=== PATIENT | female | born 1995 | race American Indian/Alaskan Native ===

== ENCOUNTER 2018-05-27 14:33 | Inpatient (IN) | payer OTHER ==
--- NOTE | 2018-05-27 16:01 | C.PDOC ---
History Of Present Illness 22-year-old female, presents to the emergency department with complaints of feeling sad. Pt states she is hearing voices that are telling her to hurt herself. Patient states she has never sought help because she is "good at hiding feelings." Patient went to [facility] this morning. She denies any plan. Time Seen by Provider: 05/27/18 15:12 Chief Complaint (Nursing): Psychiatric Evaluation History Per: Patient History/Exam Limitations: no limitations Past Medical History Reviewed: Historical Data, Nursing Documentation, Vital Signs Vital Signs: Last Vital Signs Temp 99.6 F 05/27/18 14:44 Pulse 91 H 05/27/18 14:44 Resp 20 05/27/18 14:44 BP 111/72 05/27/18 14:44 Pulse Ox 100 05/27/18 14:44 - Medical History PMH: Asthma, Bipolar Disorder Family History: States: No Known Family Hx - Social History Hx Alcohol Use: Yes Hx Substance Use: Yes - Immunization History Hx Tetanus Toxoid Vaccination: No Hx Influenza Vaccination: No Hx Pneumococcal Vaccination: No Review Of Systems Constitutional: Negative for: Fever, Chills Cardiovascular: Negative for: Chest Pain Gastrointestinal: Negative for: Nausea, Vomiting Psych: Positive for: Suicidal ideation Physical Exam - Physical Exam Appears: Non-toxic, No Acute Distress, Other (tearful) Skin: Warm, Dry, No Rash Head: Atraumatic, Normacephalic Eye(s): bilateral: Normal Inspection Nose: Normal Oral Mucosa: Moist Lips: Normal Appearing Neck: Normal ROM Chest: Symmetrical Cardiovascular: Rhythm Regular, No Murmur Respiratory: Normal Breath Sounds, No Accessory Muscle Use Extremity: Normal ROM, No Deformity Neurological/Psych: Oriented x3, Normal Speech ED Course And Treatment - Laboratory Results Result Diagrams: 05/27/18 16:18 05/27/18 15:53 Lab Interpretation: No Acute Changes O2 Sat by Pulse Oximetry: 100 Pulse Ox Interpretation: Normal (RA) Progress Note: Patient was seen by crisis. She is medically cleared for psychiatric admission. Disposition - Disposition Disposition: HOSPITALIZED Disposition Time: 18:47 Condition: STABLE - POA Present On Arrival: None - Clinical Impression Clinical Impression: Bipolar disorder - Scribe Statement The provider has reviewed the documentation as recorded by the Scribe (Sofiya Kerr) All medical record entries made by the Scribe were at my direction and personally dictated by me. I have reviewed the chart and agree that the record accurately reflects my personal performance of the history, physical exam, medical decision making, and the department course for this patient. I have also personally directed, reviewed, and agree with the discharge instructions and disposition.
[2018-05-27 16:13] LABS: HCG,QUALITATIVE URINE NEGATIVE (NEGATIVE); SQUAMOUS EPITHIAL 4 /hpf (0-5); URINE AMORPHOUS SEDIMENT MODERATE /ul (<OCC); URINE BACTERIA FEW (<OCC); URINE BILIRUBIN NEGATIVE (NEGATIVE); URINE BLOOD NEGATIVE (NEGATIVE); URINE CLARITY Turbid (Clear); URINE GLUCOSE (UA) NORMAL (Normal); URINE LEUKOCYTE ESTERASE NEG Leu/uL (Negative); URINE PROTEIN 1+ mg/dL (NEGATIVE)
[2018-05-27 16:14] LABS: URINE COLOR YELLOW (YELLOW)
[2018-05-27 16:18] LABS: ALB/GLOB RATIO 1.3 (1.0-2.1); ALBUMIN 5.4 g/dL (3.5-5.0); BLOOD UREA NITROGEN 8 mg/dL (7-17); CALCIUM 9.8 mg/dl (8.6-10.4); GFR NON-AFRICAN AMERICAN > 60
[2018-05-27 16:21] LABS: ALT/SGPT 32 U/L (9-52); AST/SGOT 43 U/L (14-36)
[2018-05-27 16:30] LABS: BASO # 0.1 K/uL (0.0-0.2); BASO % 0.7 % (0.0-2.0); EOS % 0.2 % (0.0-4.0); HEMOGLOBIN 14.2 g/dL (11.0-16.0); LYMPH # 1.7 K/uL (1.0-4.3); LYMPH % 21.8 % (20.0-40.0); MEAN CELL VOLUME 91.2 fL (81.0-99.0); MEAN CORPUSCULAR HEMOGLOBIN 31.4 pg (27.0-31.0); MEAN CORPUSCULAR HGB CONC 34.4 g/dL (33.0-37.0); MEAN PLATELET VOLUME 6.9 fL (7.2-11.7); MONO # 0.8 K/uL (0.0-0.8); MONO % 10.7 % (0.0-10.0); NEUT # 5.2 K/uL (1.8-7.0); NEUT % 66.6 % (50.0-75.0); NRBC % 0.1 % (0.0-2.0); RBC 4.53 Mil/uL (3.80-5.20); RED CELL DISTRIBUTION WIDTH 13.8 % (11.5-14.5); WHITE BLOOD COUNT 7.9 K/uL (4.8-10.8)
[2018-05-27 16:34] LABS: BARBITURATES, UR NEGATIVE (NEGATIVE); OPIATES, UR NEGATIVE (NEGATIVE); PHENCYCLIDINE, UR NEGATIVE (NEGATIVE)
[2018-05-27 16:37] LABS: BENZODIAZEPINES, UR POSITIVE (NEGATIVE)
--- NOTE | 2018-05-27 19:40 | PCM.BM ---
<Sylvia Magana - Last Filed: 05/27/18 19:37> Treatment Plan Problems - Problems identified on initial assessmt Auditory Hallucinations Date Initiated: 05/27/18 Time Initiated: 19:37 Assessment reference: NA Status: Active Substance Abuse Date Initiated: 05/27/18 Time Initiated: 19:38 Assessment reference: NA Status: Active Treatment assets and liabiliti Patient Assests: cooperative, educated, ADL independent, physically healthy, negotiates basic needs, cognitively intact Patient Liabilities: live alone (Lives with aunt), financial problems, substance abuse (Ecstasy, Percocet, Marijuana), medical problems (Asthma, bronchitis) - Milieu Protocol Maintain good personal hygiene: daily Encourage regular showers, daily Remind patient to perform daily oral care, daily Assist patient to perform ADL's (Self) Conduct patient checks and document Observation sheet: Q15 minutes (Safety) Maintain personal safety: every shift Educate patient to report safety concerns to staff, every shift Monitor environment for contraband/sharps Medication safety: Monitor for expected outcome, potential side effects: every shift, Assess barriers to learning: every shift, Assess readiness for medication education: every shift <Chet Alcala - Last Filed: 05/29/18 11:01> - Diagnosis (1) Bipolar disorder Status: Acute Interventions: 05/29/18 11:01 * Assess/adjust medications daily and /or as needed * See patient on an individual basis 7x/week to assess level of manic behaviors and stability * Discuss risks, benefits, side effects and alternatives of medications * <Teressa López - Last Filed: 05/29/18 15:13> Family Contact Family involvement: Patient does not wish Family/SO involvement Family contact: Patient declines to allow family contact at present - Goals for Treatment Patient goals for treatment: "I want to be referred to an outpatient program for treatment." Discharge/Continuing Care - Education Needs Education Needs: Patient Medication, Patient Diagnosis/Disease Process, Patient Coping Skills, Patient Placement options, Patient Community resources - Discharge Discharge Criteria: Normal sleep pattern, Ability to care for self, No longer exhibiting s/s of withdrawal, Reduction of target symptoms Discharge to:: Home, With Family - Treatment Team Participation Discussed with Family/SO: No Was Patient/Family/SO present at Treatment Team Meeting: Yes
[2018-05-28 06:46] VITALS: O2SAT 97
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
[2018-05-28] MEDS: Albuterol HFA 90 mcg/actuation (8 g) INH PRN (10:35)
--- NOTE | 2018-05-29 11:02 | PCM.PYCHPN ---
Psychiatric Progress Note - Psychiatric Progress Note Patient seen today, length of contact: 15 min Patient Chief Complaint: I was hearing voices to kill myself.' Problems Identified/Issues Discussed: Patient seen and evaluated, chart reviewed and discussed with the nurse. Patient reports irritability and agitation. She reports racing of thoughts, flight of ideas and anxiety. Patient still reports auditory and visual hallucinations. She remained isolated and withdrawn. However she is taking medication and denied any side effects. Supportive therapy and psychoeducation were given Medication Change: Yes Medical Record Reviewed: Yes Mental Status Examination - Cognitive Function Orientation: Person, Place, Situation, Time Memory: Intact Attention: WNL Concentration: Poor Association: WNL Fund of Knowledge: Poor - Mood Mood: Depressed, Anxious - Affect Affect: Broad - Speech Speech: Loud - Formal Thought Process Formal Thought Process: Hallucinations, Delusions, Paranoia, Loosening of associations - Suicidal Ideation Suicidal Ideation: No - Homicidal Ideation Homicidal Ideation: No Goal/Treatment Plan - Goal/Treatment Plan Need for Continued Stay: Discharge may exacerbated symptoms, Severe functional impairment Progress Toward Problem(s) and Goals/Treatment Plan: Bipolar disorder mixed severe with psychotic features R/O Schizoaffective disorder bipolar type Alcohol use disorder mild Cannabis use disorder mild -CBT -Psychotherapy -Supportive therapy and milieu therapy -Abilify 5 mg PO QHS -Gabapentin 300 mg PO TID -Trazodone 50 mg PO QHS -Klonopin 0.5 mg PO BID -Lamictal 25 mg PO BID
--- NOTE | 2018-05-30 12:28 | PCM.PYCHPN ---
Psychiatric Progress Note - Psychiatric Progress Note Patient seen today, length of contact: 15 min Patient Chief Complaint: I m feeling little better.' Problems Identified/Issues Discussed: Patient seen and evaluated, chart reviewed and discussed with the nurse. Patient reports irritability and agitation. She reports racing of thoughts, flight of ideas and anxiety. Patient still reports auditory and visual hallucinations. She remained isolated and withdrawn. However she is taking medication and denied any side effects. Supportive therapy and psychoeducation were given Medication Change: Yes Medical Record Reviewed: Yes Mental Status Examination - Cognitive Function Orientation: Person, Place, Situation, Time Memory: Intact Attention: WNL Concentration: Poor Association: WNL Fund of Knowledge: Poor - Mood Mood: Depressed, Anxious - Affect Affect: Broad - Speech Speech: Loud - Formal Thought Process Formal Thought Process: Hallucinations, Delusions, Paranoia, Loosening of associations - Suicidal Ideation Suicidal Ideation: No - Homicidal Ideation Homicidal Ideation: No Goal/Treatment Plan - Goal/Treatment Plan Need for Continued Stay: Discharge may exacerbated symptoms, Severe functional impairment Progress Toward Problem(s) and Goals/Treatment Plan: Bipolar disorder mixed severe with psychotic features R/O Schizoaffective disorder bipolar type Alcohol use disorder mild Cannabis use disorder mild -CBT -Psychotherapy -Supportive therapy and milieu therapy -Abilify 20 mg PO QHS -Gabapentin 300 mg PO TID -Trazodone 50 mg PO QHS -Klonopin 0.5 mg PO BID -Lamictal 50 mg PO BID
[2018-05-30] MEDS: Albuterol HFA 90 mcg/actuation (8 g) INH PRN (13:41)
[2018-05-31] MEDS: Albuterol HFA 90 mcg/actuation (8 g) INH PRN (05:49)
[2018-05-31] MEDS ORDERED: Pneumococcal 23-Valent Vaccine IM ONE (10:00)
[2018-05-31] MEDS ORDERED: Influenza Vaccine 60 MCG/0.5 ML SYR (3 yr & up) IM ONE (10:00)
[2018-06-01 06:29] VITALS: TEMP 97.6
--- NOTE | 2018-06-01 21:08 | PCM.PYCHPN ---
Psychiatric Progress Note - Psychiatric Progress Note Patient seen today, length of contact: 15 min Patient Chief Complaint: I m feeling little better.' Problems Identified/Issues Discussed: Patient seen and evaluated, chart reviewed and discussed with the nurse. Patient reports some improvement in her irritability, agitation, and racing thoughts. Patient still reports auditory and visual hallucinations but less in frequency. She remained isolated and withdrawn. However she is taking medication and denied any side effects. Supportive therapy and psychoeducation were given Medication Change: Yes Medical Record Reviewed: Yes Mental Status Examination - Cognitive Function Orientation: Person, Place, Situation, Time Memory: Intact Attention: WNL Concentration: Poor Association: WNL Fund of Knowledge: Poor - Mood Mood: Depressed, Anxious - Affect Affect: Broad - Speech Speech: Loud - Formal Thought Process Formal Thought Process: Hallucinations, Delusions, Paranoia, Loosening of associations - Suicidal Ideation Suicidal Ideation: No - Homicidal Ideation Homicidal Ideation: No Goal/Treatment Plan - Goal/Treatment Plan Need for Continued Stay: Discharge may exacerbated symptoms, Severe functional impairment Progress Toward Problem(s) and Goals/Treatment Plan: Bipolar disorder mixed severe with psychotic features R/O Schizoaffective disorder bipolar type Alcohol use disorder mild Cannabis use disorder mild -CBT -Psychotherapy -Supportive therapy and milieu therapy -Abilify 20 mg PO QHS -Gabapentin 300 mg PO TID -Trazodone 50 mg PO QHS -Klonopin 0.5 mg PO BID -Lamictal 50 mg PO BID
--- NOTE | 2018-06-01 21:27 | PCM.PYCHPN ---
Psychiatric Progress Note - Psychiatric Progress Note Patient seen today, length of contact: 15 min Patient Chief Complaint: I am feeling much better. Can I go home today. Problems Identified/Issues Discussed: Patient seen, chart reviewed, case discussed with the staff. Issues related to illness and treatment were discussed with the patient and staff. Reported compliant with treatment with no adverse affects. Tolerating treatment very well. Patient reported feeling better with the treatment.Requesting for discharge. Patient was not stable as patient appeared angry and irritable. Found punching on the spears. Angry and partially cooperative. Awake, alert and oriented 3. No psychomotor activity, good eye contact, memory intact. Aftercare discussed with the patient. Denied any delusions, auditory or visual hallucinations, suicidal ideations or homicidal ideations at the time of evaluation. Medical Problems: Asthma Bronchitis Diagnostic Results: Reviewed DSM 5 Symptoms Update: Some improvement with treatment. Medication Change: No Medical Record Reviewed: Yes Mental Status Examination - Cognitive Function Orientation: Person, Place, Situation, Time Memory: Intact Attention: WNL Concentration: WNL Association: WNL Fund of Knowledge: [facility] Decription of patient's judgement and insights: Poor - Mood Mood: Other (Angry) - Affect Affect: Other (Appropriate) - Speech Speech: Loud - Formal Thought Process Formal Thought Process: No Impairment Psychotic Thoughts and Behaviors: None - Suicidal Ideation Suicidal Ideation: No - Homicidal Ideation Homicidal Ideation: No Goal/Treatment Plan - Goal/Treatment Plan Need for Continued Stay: Remain at risks for inpatient hospitalization, Discharge may exacerbated symptoms, Severe functional impairment Progress Toward Problem(s) and Goals/Treatment Plan: Patient education. Supportive therapy. Continue treatment as before. Patient will go to [facility] for follow-up care after discharge from the hospital. Estimated Date of D/C: 06/02/18 - Smoking Cessation Smoking Cessation Initiated: No
[2018-06-02 06:36] VITALS: BP 110/74; PULSE 80; RESP 20
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
== END 2018-06-02 11:09 | disposition home or self-care (01) | DRG 885 ==
LOC: C.ER 14:33 → C.5E 18:48
PROVIDERS: ADMIT Psychiatry & Neurology Psychiatry; ATTEND Psychiatry & Neurology Psychiatry
PROC: GZHZZZZ Group Psychotherapy (ICD-10-PCS; principal; 2018-05-27)
PROC: GZ58ZZZ Individual Psychotherapy, Cognitive-Behavioral (ICD-10-PCS; 2018-05-27)
PROC: GZ56ZZZ Individual Psychotherapy, Supportive (ICD-10-PCS; 2018-05-27)
DX: F31.64 Bipolar disorder, current episode mixed, severe, with psychotic features (principal); R45.851 Suicidal ideations; F10.10 Alcohol abuse, uncomplicated; F12.90 Cannabis use, unspecified, uncomplicated; F41.9 Anxiety disorder, unspecified; J45.909 Unspecified asthma, uncomplicated; Z91.5 Personal history of self-harm; Z81.8 Family history of other mental and behavioral disorders; Y90.0 Blood alcohol level of less than 20 mg/100 ml

== ENCOUNTER 2018-10-07 06:46 | Inpatient (IN) | payer SELFPAY ==
[2018-10-07 07:40] LABS: BASO % 0.6 % (0.0-2.0); EOS # 0.1 K/uL (0.0-0.7); EOS % 2.4 % (0.0-4.0); HEMOGLOBIN 14.9 g/dL (11.0-16.0); LYMPH % 48.3 % (20.0-40.0); MEAN CELL VOLUME 92.6 fL (81.0-99.0); MEAN CORPUSCULAR HGB CONC 33.5 g/dL (33.0-37.0); MEAN PLATELET VOLUME 7.2 fL (7.2-11.7); MONO # 0.7 K/uL (0.0-0.8); MONO % 16.2 % (0.0-10.0); NEUT # 1.3 K/uL (1.8-7.0); NEUT % 32.5 % (50.0-75.0); NRBC % 0.1 % (0.0-2.0); RBC 4.82 Mil/uL (3.80-5.20); RED CELL DISTRIBUTION WIDTH 14.3 % (11.5-14.5); WHITE BLOOD COUNT 4.1 K/uL (4.8-10.8)
[2018-10-07 07:41] LABS: HCG,QUALITATIVE URINE NEGATIVE (NEGATIVE)
[2018-10-07 07:49] LABS: SQUAMOUS EPITHIAL 18 /hpf (0-5); URINE BACTERIA RARE (<OCC); URINE BILIRUBIN NEGATIVE (NEGATIVE); URINE BLOOD NEGATIVE (NEGATIVE); URINE CLARITY Hazy (Clear); URINE COLOR Yellow (YELLOW); URINE GLUCOSE (UA) NORMAL (Normal); URINE LEUKOCYTE ESTERASE NEG Leu/uL (Negative); URINE PROTEIN NEGATIVE (NEGATIVE)
--- NOTE | 2018-10-07 07:51 | C.PDOC ---
History Of Present Illness 23 y/o female,w/PMhx of bipolar disorder, presents to the ER complaining of feeling depressed since the morning. Patient states that she has suicidal ideation. She notes that she was searching up ways to hang herself. Patient denies having homicidal ideation, fever, chills, CP, SOB, nausea, and vomiting. Time Seen by Provider: 10/07/18 07:05 Chief Complaint (Nursing): Psychiatric Evaluation History Per: Patient History/Exam Limitations: no limitations Onset/Duration Of Symptoms: Hrs Current Symptoms Are (Timing): Still Present Severity: Moderate Past Medical History Reviewed: Historical Data, Nursing Documentation, Vital Signs Vital Signs: Last Vital Signs Temp 97.9 F 10/07/18 06:53 Pulse 88 10/07/18 06:53 Resp 20 10/07/18 06:53 BP 110/79 10/07/18 06:53 Pulse Ox 98 10/07/18 06:53 - Medical History PMH: Anxiety, Asthma, Bipolar Disorder, Bronchitis, Depression Denies: Diabetes, Hepatitis, HIV, HTN, Seizures, Sexually Transmitted Disease Surgical History: No Surg Hx - [facility] Procedures GROUP PSYCHOTHERAPY (05/27/18) INDIVIDUAL PSYCHOTHERAPY, COGNITIVE-BEHAVIORAL (05/27/18) INDIVIDUAL PSYCHOTHERAPY, SUPPORTIVE (05/27/18) Family History: States: No Known Family Hx - Social History Hx Alcohol Use: Yes (Daily) Hx Substance Use: Yes - Immunization History Hx Tetanus Toxoid Vaccination: No Hx Influenza Vaccination: No Hx Pneumococcal Vaccination: No Review Of Systems Except As Marked, All Systems Reviewed And Found Negative. Constitutional: Negative for: Fever, Chills Cardiovascular: Negative for: Chest Pain Respiratory: Negative for: Shortness of Breath Gastrointestinal: Negative for: Nausea, Vomiting Psych: Positive for: Depression, Suicidal ideation Physical Exam - Physical Exam Appears: Non-toxic, No Acute Distress, Other (calm,cooperative) Skin: Normal Color, Warm, Dry Head: Atraumatic, Normacephalic Eye(s): bilateral: Normal Inspection Nose: Normal Oral Mucosa: Moist Neck: Supple Chest: Symmetrical Cardiovascular: Rhythm Regular Respiratory: Normal Breath Sounds, No Rales, No Rhonchi, No Wheezing Gastrointestinal/Abdominal: Normal Exam, Soft, No Tenderness, No Guarding, No Rebound Neurological/Psych: Oriented x3, Normal Speech ED Course And Treatment - Laboratory Results Result Diagrams: 10/07/18 07:37 10/07/18 07:37 Lab Results: Urine HCG, Qual Negative (NEGATIVE) 10/07/18 07:18 Urine HCG, Qual Negative (NEGATIVE) 10/07/18 07:18 Lab Interpretation: Normal Urine POC: Negative O2 Sat by Pulse Oximetry: 98 (RA) Pulse Ox Interpretation: Normal Progress Note: Case discussed with police worker who evaluated patient in ED and request admission to Psych Reassessment Condition: Unchanged - Physician Consult Information Physician Contacted: Chet Alcala Outcome Of Conversation: admit Medical Decision Making Medical Decision Making: Plan: --Labs --UA --HCG, Qual. Disposition Discussed With Dr.: Chet Alcala Doctor Will See Patient In The: Hospital - Disposition Disposition: HOSPITALIZED Disposition Time: 11:30 Condition: STABLE - POA Present On Arrival: None - Clinical Impression Clinical Impression: Bipolar disorder - PA / [employer]OF[employer]OSTHET[employer] DENTIST / Resident Statement MD/DO has reviewed & agrees with the documentation as recorded. - Scribe Statement The provider has reviewed the documentation as recorded by the Lexis Moser Provider Attestation All medical record entries made by the Alissaibe were at my direction and personall y dictated by me. I have reviewed the chart and agree that the record accurately reflects my personal performance of the history, physical exam, medical decision making, and the department course for this patient. I have also personally directed, reviewed, and agree with the discharge instructions and disposition. Decision To Admit - Pt Status Changed To: Hospital Disposition Of: Inpatient - Admit Certification Admit to Inpatient:: After my assessment, the patient will require h ospitalization for at least two midnights. This is because of the severity of symptoms shown, intensity of services needed, and/or the medical risk in this patient being treated as an outpatient. - InPatient: Physician Admission Certification: I certify that this patient requires 2 or more midnights of care for the following reason:: Bipolar disorder - . Bed Request Type: Psychiatry Admitting Physician: Chet Alcala Patient Diagnosis: Bipolar disorder
[2018-10-07 08:04] LABS: BARBITURATES, UR NEGATIVE (NEGATIVE); BENZODIAZEPINES, UR NEGATIVE (NEGATIVE); OPIATES, UR NEGATIVE (NEGATIVE); PHENCYCLIDINE, UR NEGATIVE (NEGATIVE)
[2018-10-07 08:05] LABS: ALB/GLOB RATIO 1.3 (1.0-2.1); ALBUMIN 4.6 g/dL (3.5-5.0); ALT/SGPT 9 U/L (9-52); AST/SGOT 28 U/L (14-36); BLOOD UREA NITROGEN 12 mg/dL (7-17); CALCIUM 8.7 mg/dl (8.6-10.4); GFR NON-AFRICAN AMERICAN > 60
--- NOTE | 2018-10-07 09:42 | PCM.PSYCH ---
Initial Psychiatric Evaluation - Initial Psychiatric Evaluation Type of Admission: Voluntary Legal Status: Capacity Chief Complaint (in patient's own words): I was feeling depressed and suicidal.' History of Present Illness and Precipitating Events: Pt is a 23 year old female, who came to the ED following a suicide attempt this morning in which pt wrapped a sheet around her neck and tied it on the banister. Patient reports a long history of mood disorder. She reports history of one inpatient psychiatric hospitalization last year. She reports that soon after discharge from the hospital she stopped taking her medications and did not follow with a psychiatrist. She reported that she is feeling increasingly irritable and depressed since few weeks. Yesterday she became increasingly depressed and tried to kill herself by wrapping a sheet around her neck on 2 years ago. Pt states she was going to jump off of the side of the building to hang herself, but she thought of her niece who has the same birthday as her, and stopped herself. She states when she interrupted her suicide attempt, she immediately left her Aunt Roselyn a note letting her know that she was going to the hospital, and then called herself a Lyft. Patient reports that she has multiple suicide attempts in the past. Pt states that she has a history of cutting and burning since age 14, last episode "a few weeks ago" when pt cut her thigh and burned her forearm. Pt reports using alcohol and marijuana daily, last use yesterday. Pt reports drinking "some wine and a fifth" of liquor daily for "a while," and unspecified amount of marijuana daily. Pt presents as unkempt and disheveled. She reports irritability, agitation and at times difficult talks. She reports depressed mood and affect shortness of hopelessness and helplessness. She denies any auditory or visual hallucinations or any paranoia. Past medical history None reported Past Psychiatric History - Past Psychiatric History Previous Treatment History: Inpatient Pertinent Medical Hx (Current Medical&Sleep Prob, Allergies): Allergies Allergy/AdvReac Type Severity Reaction Status Date / Time No Known Allergies Allergy Verified 05/27/18 14:45 Famotidine [Pepcid] 20 mg PO HS #20 tab 07/17/15 Spacer, Inhalation [Aerochamber] 1 inh IH QID #1 dev 07/17/15 ARIPiprazole [Abilify] 20 mg PO HS #30 tab 06/02/18 Benztropine [Cogentin] 0.5 mg PO BID #60 tab 06/02/18 Gabapentin [Neurontin] 300 mg PO TID #90 cap 06/02/18 clonazePAM [Klonopin] 0.5 mg PO BID #30 tab 06/02/18 lamoTRIgine [Lamictal] 50 mg PO BID #60 tab 06/02/18 traZODone [Desyrel] 50 mg PO HS PRN #30 tab 06/02/18 Review of Systems - Review of Systems All systems: reviewed and no additional remarkable complaints except - Psychiatric Psychiatric: Anxiety, Irritability, Mood Swings, Suicidal Ideation Mental Status Examination - Personal Presentation Personal Presentation: Looks stated age - Affect Affect: Broad - Motor Activity Motor Activity: Psychomotor Agitation - Reliability in Providing Information Reliability in Providing Information: Poor, due to altered mood - Speech Speech: Organized - Mood Mood: Anxious - Formal Thought Process Formal Thought Process: Flight of ideas - Obsessions/Compulsions Obsessions: No Compulsions: No - Cognitive Functions Orientation: Person, Place, Situation, Time Sensorium: Alert Attention/Concentration: Attentive Abstract Thinking: [place] Estimate of Intelligence: Below average Judgement: Imparied, as evidence by: Poor judgement, Imparied, as evidence by: Lack of insight into illness - Risk Risk: Suicidal, Diminished functioning - Limitations Limitations: Living alone DSM 5 DX - DSM 5 DSM 5 Diagnosis: Bipolar disorder mixed severe with psychotic features Alcohol use disorder severe Cannabis use disorder severe - Recommended/Plan of Treatment Treatment Recommendations and Plan of Treatment: Bipolar disorder mixed severe with psychotic features Alcohol use disorder severe Cannabis use disorder severe CBT Psychoeducation Group therapy and supportive therapy Abilify for mood Hydroxyzine for anxiety Trazodone for insomnia Topamax for mood Risks and benefits of the medications were discussed with the patient Patient agreed to take the medications - Smoking Cessation Smoking Cessation Initiated: No
--- NOTE | 2018-10-07 12:03 | PCM.BM ---
<Velia Stallworth - Last Filed: 10/07/18 12:00> Treatment Plan Problems - Problems identified on initial assessmt Problem 1 Date Initiated: 10/07/18 Time Initiated: 12:01 Assessment reference: NA Status: Active Treatment assets and liabiliti Patient Assests: cooperative, educated, ADL independent, physically healthy, negotiates basic needs, cognitively intact Patient Liabilities: relationship conflicts, substance abuse - Milieu Protocol Maintain good personal hygiene: daily Encourage regular showers Conduct patient checks and document Observation sheet: Q15 minutes Maintain personal safety: every shift Educate patient to report safety concerns to staff, every shift Monitor environment for contraband/sharps Medication safety: Monitor for expected outcome, potential side effects: every shift, Assess barriers to learning: every shift, Assess readiness for medication education: every shift <Teressa López - Last Filed: 10/07/18 15:01> Family Contact Family involvement: Patient does not wish Family/SO involvement Family contact: Patient declines to allow family contact at present - Goals for Treatment Patient goals for treatment: "I want to be referred to an outpatient program." Discharge/Continuing Care - Education Needs Education Needs: Patient Medication, Patient Diagnosis/Disease Process, Patient Coping Skills, Patient Placement options, Patient Community resources - Discharge Discharge Criteria: Free of Suicidal thoughts, Normal sleep pattern, Ability to care for self, No longer exhibiting s/s of withdrawal, Reduction of target symptoms Discharge to:: Home - Treatment Team Participation Discussed with Family/SO: No Was Patient/Family/SO present at Treatment Team Meeting: Yes <Chet Alcala - Last Filed: 10/09/18 11:14> - Diagnosis (1) Bipolar disorder Status: Acute Interventions: 10/09/18 11:13 * Assess/adjust medications daily and /or as needed * See patient on an individual basis 7x/week to assess level of manic behaviors and stability * Discuss risks, benefits, side effects and alternatives of medications * (2) Cocaine use disorder, severe, dependence Status: Acute Interventions: 10/09/18 11:13 * Assess 7x/week regarding severity of withdrawal * Educate regarding risks, benefits, side effects and alternatives of medications * Use Motivational Interviewing for abstinence * Use CBT for relapse prevention * Medication management for withdrawal symptoms * Encourage medication assisted treatment *
--- NOTE | 2018-10-08 22:12 | PCM.PYCHPN ---
Psychiatric Progress Note - Psychiatric Progress Note Patient seen today, length of contact: 16 min Patient Chief Complaint: I m feeling depressed.' Problems Identified/Issues Discussed: Patient was seen and evaluated with staff. Patient's reports irritability, agitation and at times feeling of hopelessness and helplessness. By staff patient remained irritable and labile. She started taking medication without any side effects. She needs to stay longer for the stabilization of the symptoms Supportive therapy was given Medication Change: Yes Medical Record Reviewed: Yes Mental Status Examination - Cognitive Function Orientation: Person, Place, Situation, Time Memory: Intact Attention: WNL Concentration: Poor Association: WNL Fund of Knowledge: Poor - Mood Mood: Anxious - Affect Affect: Broad - Speech Speech: Pressured - Formal Thought Process Formal Thought Process: Flight of ideas - Suicidal Ideation Suicidal Ideation: No - Homicidal Ideation Homicidal Ideation: No Goal/Treatment Plan - Goal/Treatment Plan Need for Continued Stay: Remain at risks for inpatient hospitalization Progress Toward Problem(s) and Goals/Treatment Plan: Bipolar disorder mixed severe with psychotic features Alcohol use disorder severe Cannabis use disorder severe CBT Psychoeducation Group therapy and supportive therapy Abilify for mood Hydroxyzine for anxiety Trazodone for insomnia Topamax for mood Risks and benefits of the medications were discussed with the patient Patient agreed to take the medications - Smoking Cessation Smoking Cessation Initiated: No
[2018-10-09 05:50] VITALS: RESP 20
[2018-10-09] MEDS ORDERED: DiphenhydrAMINE 50 mg/ml Inj IM PRN ×2 (11:39→12:00)
[2018-10-11 06:36] VITALS: BP 94/66; PULSE 105; TEMP 98.1; O2SAT 99
--- NOTE | 2018-10-11 09:32 | PCM.PYCHDC ---
Mental Status Examination - Mental Status Examination Orientation: Person, Place, Situation, Time Memory: Intact Mood: Neutral Affect: Constricted Speech: Soft Attention: WNL Concentration: WNL Association: WNL Fund of Knowledge: WNL Formal Thought Process: No Impairment Description of patient's judgement and insight: good, fair Psychotic Thoughts and Behaviors: denies any AVH Suicidal Ideation: No Current Homicidal Ideation?: No Discharge Summary - Discharge Note Reason for Hospitalization: Pt is a 23 year old female, who came to the ED following a suicide attempt this morning in which pt wrapped a sheet around her neck and tied it on the banister. Patient reports a long history of mood disorder. She reports history of one inpatient psychiatric hospitalization last year. She reports that soon after discharge from the hospital she stopped taking her medications and did not follow with a psychiatrist. She reported that she is feeling increasingly irritable and depressed since few weeks. Yesterday she became increasingly depressed and tried to kill herself by wrapping a sheet around her neck on 2 years ago. Pt states she was going to jump off of the side of the building to hang herself, but she thought of her niece who has the same birthday as her, and stopped herself. She states when she interrupted her suicide attempt, she immediately left her Aunt Roselyn a note letting her know that she was going to the hospital, and then called herself a Lyft. Patient reports that she has multiple suicide attempts in the past. Pt states that she has a history of cutting and burning since age 14, last episode "a few weeks ago" when pt cut her thigh and burned her forearm. Pt reports using alc ohol and marijuana daily, last use yesterday. Pt reports drinking "some wine and a fifth" of liquor daily for "a while," and unspecified amount of marijuana daily. Pt presents as unkempt and disheveled. She reports irritability, agitation and at times difficult talks. She reports depressed mood and affect shortness of hopelessness and helplessness. She denies any auditory or visual hallucinations or any paranoia. Consultations:: List each consultation separately and include: 1. Reason for request. 2. Findings. 3. Follow-up Summary of Hospital Course include:: 1. Description of specific treatment plan utilized for patients during their course of treatmen. 2. Summarize the time- course for resolution of acute symptoms and/or regressed behaviors. 3. Describe issues identified and worked on during hospitalization. 4. Describe medication utilized. 5. Describe medical problems identified and treated. 6. Reassessment of suicide risk Summary of Hospital Course: Pt is a 23 year old female, who came to the ED following a suicide attempt this morning in which pt wrapped a sheet around her neck and tied it on the banister. Patient reports a long history of mood disorder. She reports history of one inpatient psychiatric hospitalization last year. She reports that soon after discharge from the hospital she stopped taking her medications and did not follow with a psychiatrist. She reported that she is feeling increasingly irritable and depressed since few weeks. Yesterday she became increasingly depressed and tried to kill herself by wrapping a sheet around her neck on 2 years ago. Pt states she was going to jump off of the side of the building to hang herself, but she thought of her niece who has the same birthday as her, and stopped herself. She states when she interrupted her suicide attempt, she immediately left her Aunt Roselyn a note letting her know that she was going to [facility], and then called herself a Lyft. Patient reports that she has multiple suicide attempts in the past. Pt states that she has a history of cutting and burning since age 14, last episode "a few weeks ago" when pt cut her thigh and burned her forearm. Pt reports using alcohol and marijuana daily, last use yesterday. Pt reports drinking "some wine and a fifth" of liquor daily for "a while," and unspecified amount of marijuana daily. Pt presents as unkempt and disheveled. She reports irritability, agitation and at times difficult talks. She reports depressed mood and affect shortness of hopelessness and helplessness. She denies any auditory or visual hallucinations or any paranoia. Past medical history None reported - Diagnosis (1) Bipolar disorder Current Visit: Yes Status: Acute (2) Cocaine use disorder, severe, dependence Current Visit: Yes Status: Acute - Final Diagnosis (DSM 5) Condition upon Discharge: STABLE DSM 5: Bipolar disorder mixed severe with psychotic features Alcohol use disorder severe Cannabis use disorder severe Disposition: HOME/ ROUTINE Follow-up Treatment Plan: Bipolar disorder mixed severe with psychotic features Alcohol use disorder severe Cannabis use disorder severe CBT Psychoeducation Group therapy and supportive therapy Abilify for mood Hydroxyzine for anxiety Trazodone for insomnia Topamax for mood Risks and benefits of the medications were discussed with the patient Patient agreed to take the medications Prescriptions/Medication Reconciliation: ARIPiprazole [Abilify] 15 mg PO HS #30 tab Topiramate [Topamax] 50 mg PO BID #60 tab traZODone [Desyrel] 100 mg PO HS #30 tab - Smoking Cessation Smoking Cessation Medication prescribed: No
== END 2018-10-11 10:06 | disposition home or self-care (01) | DRG 885 ==
LOC: C.ER 06:46 → C.5E 08:37
PROVIDERS: ADMIT Psychiatry & Neurology Psychiatry; ATTEND Psychiatry & Neurology Psychiatry
PROC: GZ56ZZZ Individual Psychotherapy, Supportive (ICD-10-PCS; principal; 2018-10-07)
DX: F31.64 Bipolar disorder, current episode mixed, severe, with psychotic features (principal); R45.851 Suicidal ideations; F14.20 Cocaine dependence, uncomplicated; F41.9 Anxiety disorder, unspecified; G47.00 Insomnia, unspecified; J45.909 Unspecified asthma, uncomplicated; Z91.5 Personal history of self-harm; F12.10 Cannabis abuse, uncomplicated; F10.10 Alcohol abuse, uncomplicated